=== PATIENT | female | born 1955 | race Hispanic/Latino ===

== ENCOUNTER 2017-02-07 16:28 | Inpatient (IN) | payer OTHER ==
--- NOTE | 2017-02-07 16:57 | CT ---
PROCEDURE: CT HEAD WITHOUT CONTRAST. HISTORY: STROKE ALERT / rt arm numbness COMPARISON: None available. TECHNIQUE: Axial computed tomography images were obtained through the head/brain without intravenous contrast. Radiation dose: Total exam DLP = 815.05 mGy-cm. This CT exam was performed using one or more of the following dose reduction techniques: Automated exposure control, adjustment of the mA and/or kV according to patient size, and/or use of iterative reconstruction technique. FINDINGS: HEMORRHAGE: No intracranial hemorrhage. BRAIN: No mass effect or edema. No atrophy or chronic microvascular ischemic changes. VENTRICLES: Unremarkable. No hydrocephalus. CALVARIUM: Unremarkable. PARANASAL SINUSES: Unremarkable as visualized. No significant inflammatory changes. MASTOID AIR CELLS: Unremarkable as visualized. No inflammatory changes. OTHER FINDINGS: None. IMPRESSION: Normal CT of the Head. No intracranial mass, hemorrhage or evidence of acute infarct. This result was discussed with Dr. Theodore by telephone at 4:55 p.m. on 02/07/2017.
[2017-02-07 17:08] LABS: BASO # 0.1 K/uL (0.0-0.2); EOS # 0.2 K/uL (0.0-0.7); EOS % 2.9 % (0.0-4.0); LYMPH % 38.7 % (20.0-40.0); MEAN CORPUSCULAR HEMOGLOBIN 30.6 pg (27.0-31.0); MONO # 0.6 K/uL (0.0-0.8); MONO % 8.3 % (0.0-10.0); RED CELL DISTRIBUTION WIDTH 13.7 % (11.5-14.5); WHITE BLOOD COUNT 7.8 K/uL (4.8-10.8)
[2017-02-07 17:09] LABS: MEAN CELL VOLUME 92.6 fL (81.0-99.0)
[2017-02-07 17:12] LABS: CHLORIDE 97 mmol/L (98-107); POTASSIUM 3.5 mmol/L (3.6-5.2); SODIUM 137 mmol/L (132-148)
--- NOTE | 2017-02-07 17:12 | C.PDOC ---
History Of Present Illness 61-year-old female, denies significant PMhx, presents to the emergency department with complaints of three-day duration of dizziness and light headedness, that initially was described as "room spinning" vertigo-like sensation. Patient notes that she checked her blood pressure today which was found to be elevated. Today she developed "numbness" in her right arm associated with some anxiety causing her to have some chest discomfort. She was referred to the ED for evaluation. Denies weakness, or lack of coordination. No headache, dizziness, visual changes, speech changes, or any other associated symptoms. No other complaints at this time. Time Seen by Provider: 02/07/17 16:33 Chief Complaint (Nursing): Weakness/Neurological Deficit History Per: Patient History/Exam Limitations: no limitations Past Medical History Reviewed: Historical Data, Nursing Documentation, Vital Signs Vital Signs: Last Vital Signs Temp 98.3 F 02/07/17 16:32 Pulse 94 H 02/07/17 16:55 Resp 20 02/07/17 16:55 BP 182/92 H 02/07/17 16:55 Pulse Ox 97 02/07/17 17:49 - Medical History PMH: No Chronic Diseases Surgical History: No Surg Hx Family History: States: CAD, Hypertension - Social History Hx Tobacco Use: No Hx Alcohol Use: No Hx Substance Use: No - Immunization History Hx Tetanus Toxoid Vaccination: No Hx Influenza Vaccination: No Hx Pneumococcal Vaccination: No Review Of Systems Except As Marked, All Systems Reviewed And Found Negative. Constitutional: Negative for: Fever, Chills Cardiovascular: Positive for: Chest Pain, Light Headedness. Negative for: Palpitations Respiratory: Negative for: Shortness of Breath Gastrointestinal: Negative for: Nausea, Vomiting Musculoskeletal: Negative for: Neck Pain, Back Pain Skin: Negative for: Rash Neurological: Positive for: Numbness, Dizziness. Negative for: Weakness, Incoordination, Change in Speech, Headache Psych: Positive for: Anxiety Physical Exam - Physical Exam Appears: Non-toxic, No Acute Distress Skin: Warm, Dry, No Rash Head: Atraumatic, Normacephalic Eye(s): bilateral: Normal Inspection, PERRL Nose: Normal Oral Mucosa: Moist Lips: Normal Appearing Neck: Normal ROM Cardiovascular: Rhythm Regular Respiratory: Normal Breath Sounds, No Accessory Muscle Use Extremity: Normal ROM Neurological/Psych: Oriented x3, Normal Speech, Other (Subtle right facial droop ) ED Course And Treatment - Laboratory Results Result Diagrams: 02/07/17 16:51 02/07/17 16:51 Lab Interpretation: No Acute Changes ECG: Interpreted By Me ECG Rhythm: Sinus Rhythm, ST/T Changes (nonspecific) ECG Interpretation: No Acute Changes O2 Sat by Pulse Oximetry: 97 Pulse Ox Interpretation: Normal - Radiology CXR: Viewed By Me, Read By Radiologist CXR Interpretation: Yes: No Acute Disease - CT Scan/US Head Other Rad Studies (CT/US): Read By Radiologist, Radiology Report Reviewed CT/US Interpretation: Accession No. : [id number]. Patient Name / ID : SHANDRA DOSS / [id number]. Exam Date : 02/07/2017 16:48:13 ( Approved ). Study Comment : Sex / Age : F / 61Y. Creator : Kole Elaine MD. Dictator : Kole Elaine MD. Managing Director : Truss Puller Helper : Kole Elaine MD. Approver2 : Report Date : 02/07/2017 16:55:51. My Comment : . PROCEDURE : CT HEAD WITHOUT CONTRAST. HISTORY: STROKE ALERT / rt arm numbness. COMPARISON: None available. TECHNIQUE: Axial computed tomography images were obtained through the head/brain without intravenous contrast. Radiation dose: Total exam DLP = 815.05 mGy-cm. This CT exam was performed using one or more of the following dose reduction techniques: Automated exposure control, adjustment of the mA and/or kV according to patient size, and/or use of iterative reconstruction technique. FINDINGS: HEMORRHAGE: No intracranial hemorrhage. BRAIN: No mass effect or edema. No atrophy or chronic microvascular ischemic changes. VENTRICLES: Unremarkable. No hydrocephalus. CALVARIUM: Unremarkable. PARANASAL SINUSES: Unremarkable as visualized. No significant inflammatory changes. MASTOID AIR CELLS: Unremarkable as visualized. No inflammatory changes. OTHER FINDINGS: None. IMPRESSION: Normal CT of the Head. No intracranial mass, hemorrhage or evidence of acute infarct. This result was discussed with Dr. Theodore by telephone at 4:55 p.m. on 02/07/2017. Progress Note: Blood work, EKG and CT head ordered and reviewed. Patient treated with Aspirin and Apresoline. Reevaluation Time: 18:30 Reassessment Condition: Improved - Physician Consult Information Physician Contacted: Melisa Truong Outcome Of Conversation: Patient to be kept on tele for observation, cardiac workup and treatment of new hypertension. NIHSS Stroke Scale - Date/Time Evaluation Performed Date Performed: 02/07/17 Time Performed: 16:45 When Was NIHSS Performed: Baseline - How Severe is the Stoke Level of Consciousness: 0=Alert LOC to Questions: 0=Both comments correct LOC to commands: 0=Obeys both correctly Best Gaze: 0=Normal Visual: 0=No visual loss Facial: 1=Minor asymmetry Motor Arm - Left: 0=No drift Motor Arm - Right: 0=No drift Motor Leg - Left: 0=No drift Motor Leg - Right: 0=No drift Limb Ataxia: 0=Absent Sensory: 0=Normal Best Language: 0=No aphasia Dysarthia: 0=Normal articulation Extinction & Inattention (Neglect): 0=Normal, no object Score: 1 Severity Of Stroke: 1-4= Minor Stroke Disposition - Disposition Disposition: HOSPITALIZED Disposition Time: 18:31 Condition: IMPROVED - POA Present On Arrival: None - Clinical Impression Clinical Impression: Hypertension, Chest pain - Scribe Statement The provider has reviewed the documentation as recorded by the Lyric Guo All medical record entries made by the Scribe were at my direction and personally dictated by me. I have reviewed the chart and agree that the record accurately reflects my personal performance of the history, physical exam, medical decision making, and the department course for this patient. I have also personally directed, reviewed, and agree with the discharge instructions and disposition.
[2017-02-07 17:14] LABS: CHOLESTEROL 241 mg/dL (0-199); GFR AFRICAN-AMERICAN > 60
[2017-02-07 17:15] LABS: ALB/GLOB RATIO 1.3 (1.0-2.1); ALKALINE PHOSPHATASE 84 U/L (38-126); ALT/SGPT 25 U/L (9-52); AST/SGOT 30 U/L (14-36); BILIRUBIN,TOTAL 0.7 mg/dL (0.2-1.3); BLOOD UREA NITROGEN 15 mg/dL (7-17); CALCIUM 9.1 mg/dl (8.6-10.4); CARBON DIOXIDE 28 mmol/L (22-30); GLUCOSE,RANDOM 96 mg/dL (65-105)
--- NOTE | 2017-02-07 18:02 | RAD ---
HISTORY: right arm numbness COMPARISON: Chest x-ray performed 11/27/12 TECHNIQUE: Chest, one view. FINDINGS: LUNGS: No focal consolidation. Please note that chest x-ray has limited sensitivity for the detection of pulmonary masses. PLEURA: No significant pleural effusion identified. No definite pneumothorax . CARDIOVASCULAR: The cardiomediastinal silhouette appears within normal limits of size. OSSEOUS STRUCTURES: No acute osseous abnormality identified. VISUALIZED UPPER ABDOMEN: Unremarkable. OTHER FINDINGS: None. IMPRESSION: No focal consolidation, significant pleural effusion, or definite pneumothorax identified.
--- NOTE | 2017-02-07 18:12 | CP.PCM.HP ---
<Tara Plascencia - Last Filed: 02/07/17 20:54> History of Present Illness - History of Present Illness History of Present Illness: CC: I came in because of my blood pressure HPI: 61 year old female with no PMHx on no prescribed medications presents to ED after being sent in by PMD Dr. Truong for elevated blood pressure. Patient reports that on Monday 02/05 she was feeling dizzy when walking and believed it was her "vertigo" as she had had episodes of dizziness in the past. She described the dizziness as the room spinning. Patient also reported associated nausea that day for which she took Dramamine and fell asleep. 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 Patient reported that at work on the morning of her admission however, when taking her blood pressure she noted it was elevated at 148/90. Patient reported that she had had a check up with Dr. Truong a couple of weeks ago where her blood pressure was within normal limits and her routine lab work had no marked abnormalities. She decided to go into Dr. Truong's office on the day of admission where a rechecked blood pressure on both arms was systolic between 180 - 200 and diastolic between 90 - 100. Patient reports that this morning she was also noticing some pressure on the center of her chest that was constant. She described it as a "heavyness" and denied it being a sharp pain, or pain that radiated down her left arm or up her jaw. She also reported having numbness and tingling down her right arm that began today. Patient also disclosed that over the past three days she was having a frontal 7/10 headache for which she took advil 200mg twice. She denied any associated dizziness. Patient also denied any SOB, cough, swelling of her legs. She also denied any recent travel, recent illnesses, or sick contacts PMD: Dr. Truong PMHx: denies Meds: denies ALL: NKDA PSurg: laminectomy in the and fibroid removal in 2012 PHospitalization: denies FamHx: extensive cardiac history in family: father at 71yo due to CHF; mother at 81yo due to NE; brother is 65yo with a defibrillator, has a hx of stable angina, had an NE when he was 50 years old and has a cardiac stent SocHx: denies ROS: admits to headache, dizziness, nausea, chest pressure, palpitations, numbness and tingling down right arm. Denies fever, chills, diaphoresis, weakness, change in vision, ringing of the ears, SOB, cough, abdominal pain, nausea, vomiting, bowel/bladder complaints, swollen legs ED Course: CT head negative; EKG had no acute changes;first GUEVARA was negative; routine labs; labetalol, hydralazine, ASA were administered Present on Admission - Present on Admission Any Indicators Present on Admission: No Review of Systems - Constitutional Constitutional: As Per HPI, Headache. absent: Chills, Fever - EENT Eyes: As Per HPI. absent: Blurred Vision Ears: As Per HPI. absent: Tinnitus Nose/Mouth/Throat: As Per HPI, Nasal Congestion - Cardiovascular Cardiovascular: As Per HPI, Chest Pain (pressure like pain), Palpitations. absent: Diaphoresis, Dyspnea, Dyspnea on Exertion, Edema, Pain Radiating to Arm/ Neck/Jaw, Leg Edema, Pedal Edema, Radiating Pain - Respiratory Respiratory: As Per HPI. absent: Cough, Dyspnea, Hemoptysis, Wheezing, Chest Congestion - Gastrointestinal Gastrointestinal: As Per HPI, Nausea. absent: Abdominal Pain, Constipation, Diarrhea, Vomiting - Genitourinary Genitourinary: As Per HPI. absent: Dysuria, Hematuria, Pyuria - Musculoskeletal Musculoskeletal: As Per HPI, Numbness (some numbness down R arm), Tingling ( down R arm). absent: Back Pain, Muscle Cramps - Integumentary Integumentary: As Per HPI. absent: Pruritus - Neurological Neurological: As Per HPI, Dizziness, Numbness (R arm), Headaches (frontal 7/10) , Tingling (R arm) - Psychiatric Psychiatric: As Per HPI, Anxiety - Endocrine Endocrine: As Per HPI, Palpitations. absent: Polydipsia, Polyuria - Hematologic/Lymphatic Hematologic: As Per HPI. absent: Easy Bleeding, Easy Bruising, Lymphadenopathy Past Patient History - Infectious Disease Hx of Infectious Diseases: None - Past Social History Smoking Status: Never Smoked - PSYCHIATRIC Hx Substance Use: No - SURGICAL HISTORY Hx Surgeries: No - ANESTHESIA Hx Anesthesia: No Meds Allergies/Adverse Reactions: Allergies Allergy/AdvReac Type Severity Reaction Status Date / Time No Known Allergies Allergy Unverified 02/07/17 16:35 Physical Exam - Constitutional Appears: Non-toxic, No Acute Distress - Head Exam Head Exam: ATRAUMATIC, NORMAL INSPECTION, NORMOCEPHALIC - Eye Exam Eye Exam: EOMI, Normal appearance. absent: Conjunctival injection, Scleral icterus Pupil Exam: NORMAL ACCOMODATION - ENT Exam ENT Exam: Mucous Membranes Moist - Neck Exam Neck exam: Positive for: Normal Inspection. Negative for: Tenderness - Respiratory Exam Respiratory Exam: Clear to Auscultation Bilateral, NORMAL BREATHING PATTERN. absent: Accessory Muscle Use, Rales, Rhonchi, Wheezes, Respiratory Distress - Cardiovascular Exam Cardiovascular Exam: Tachycardia, REGULAR RHYTHM, +S1, +S2 - GI/Abdominal Exam GI & Abdominal Exam: Normal Bowel Sounds, Soft. absent: Firm, Guarding, Rigid, Tenderness - Rectal Exam Rectal Exam: Deferred - Extremities Exam Extremities exam: Positive for: normal inspection, pedal pulses present. Negative for: pedal edema, tenderness - Back Exam Back exam: NORMAL INSPECTION. absent: rash noted - Neurological Exam Neurological exam: Alert, Oriented x3 - Psychiatric Exam Psychiatric exam: Anxious - Skin Skin Exam: Dry, Intact, Normal Color, Warm Results - Vital Signs Recent Vital Signs: Last Vital Signs Temp 98.3 F 02/07/17 16:32 Pulse 94 H 02/07/17 16:55 Resp 20 02/07/17 16:55 BP 182/92 H 02/07/17 16:55 Pulse Ox 97 02/07/17 17:49 - Labs Result Diagrams: 02/07/17 16:51 02/07/17 16:51 Labs: Laboratory Results - last 24 hr 02/07/17 02/07/17 02/07/17 16:51 16:51 16:51 WBC 7.8 RBC 4.43 Hgb 13.5 Hct 41.0 MCV 92.6 D MCH 30.6 MCHC 33.0 RDW 13.7 Plt Count 248 MPV 9.0 Neut % (Auto) 49.1 L Lymph % (Auto) 38.7 [place] % (Auto) 8.3 Eos % (Auto) 2.9 Baso % (Auto) 1.0 Neut # 3.8 Lymph # 3.0 [place] # 0.6 Eos # 0.2 Baso # 0.1 PT 11.5 INR 1.0 APTT 34 Sodium 137 Potassium 3.5 L Chloride 97 L Carbon Dioxide 28 Anion Gap 16 BUN 15 Creatinine 0.8 Est GFR ( Amer) > 60 Est GFR (Non-Af Amer) > 60 Random Glucose 96 Hemoglobin A1c Calcium 9.1 Total Bilirubin 0.7 AST 30 ALT 25 Alkaline Phosphatase 84 Troponin I < 0.0120 Total Protein 8.0 Albumin 4.5 Globulin 3.5 Albumin/Globulin Ratio 1.3 Triglycerides 197 H D Cholesterol 241 H LDL Cholesterol Direct 118 HDL Cholesterol 80 H 02/07/17 16:51 WBC RBC Hgb Hct MCV MCH MCHC RDW Plt Count MPV Neut % (Auto) Lymph % (Auto) [place] % (Auto) Eos % (Auto) Baso % (Auto) Neut # Lymph # [place] # Eos # Baso # PT INR APTT Sodium Potassium Chloride Carbon Dioxide Anion Gap BUN Creatinine Est GFR ( Amer) Est GFR (Non-Af Amer) Random Glucose Hemoglobin A1c 5.1 Calcium Total Bilirubin AST ALT Alkaline Phosphatase Troponin I Total Protein Albumin Globulin Albumin/Globulin Ratio Triglycerides Cholesterol LDL Cholesterol Direct HDL Cholesterol Assessment & Plan - Assessment and Plan (Free Text) Assessment: 61 year old female with no PMHx on no prescribed medications presents to ED after being sent in by PMD Dr. Truong for elevated blood pressure. Plan: HTN Urgency -Patient admitted to TELE -CT head: negative -first GUEVARA negative -first EKG with no acute ST changes -repeat GUEVARA and EKG pending -Labetalol 100mg PO TID [hold if systolic < 120 or diastolic < 60 or HR < 60] -Hydralazine 10mg IVP PRN systolic BP > 180 -ASA 81mg po daily -Crestor 20mg po qhs -Echo pending -AM Labs pending -Cardio consult: Dr. Flores Mixed Hyperlipidemia -Triglycerides 197 -Cholesterol 241 -LDL 118 -HDL 80 -Crestor 20mg po hs PPX -SCDs -Heparin 5000U SC Q8 -Protonix 40mg po daily -Heart healthy diet Plan discussed with Dr. Shira Plascencia PGY1 <Nehemias Silva - Last Filed: 02/08/17 14:49> Results - Vital Signs Recent Vital Signs: Last Vital Signs Temp 97.3 F L 02/08/17 07:30 Pulse 63 02/08/17 07:30 Resp 18 02/08/17 07:30 BP 174/84 H 02/08/17 07:30 Pulse Ox 100 02/08/17 07:30 - Labs Result Diagrams: 02/08/17 07:45 02/08/17 07:45 Labs: Laboratory Results - last 24 hr 02/08/17 02/08/17 02/08/17 00:36 06:24 07:45 WBC 6.1 RBC 4.38 Hgb 13.5 Hct 40.5 MCV 92.5 MCH 30.9 MCHC 33.4 RDW 14.0 Plt Count 227 MPV 8.7 Neut % (Auto) 55.0 Lymph % (Auto) 33.6 [place] % (Auto) 7.4 Eos % (Auto) 2.8 Baso % (Auto) 1.2 Neut # 3.4 Lymph # 2.1 [place] # 0.5 Eos # 0.2 Baso # 0.1 Sodium Potassium Chloride Carbon Dioxide Anion Gap BUN Creatinine Est GFR ( Amer) Est GFR (Non-Af Amer) POC Glucose (mg/dL) 89 Random Glucose Calcium Phosphorus Magnesium Total Bilirubin AST ALT Alkaline Phosphatase Total Creatine Kinase 204 H CK-MB (Mass) 0.86 Troponin I, Quant 0.0120 Total Protein Albumin Globulin Albumin/Globulin Ratio Free T4 TSH 3rd Generation 02/08/17 02/08/17 07:45 07:45 WBC RBC Hgb Hct MCV MCH MCHC RDW Plt Count MPV Neut % (Auto) Lymph % (Auto) [place] % (Auto) Eos % (Auto) Baso % (Auto) Neut # Lymph # [place] # Eos # Baso # Sodium 137 Potassium 3.8 Chloride 100 Carbon Dioxide 26 Anion Gap 15 BUN 13 Creatinine 0.7 Est GFR ( Amer) > 60 Est GFR (Non-Af Amer) > 60 POC Glucose (mg/dL) Random Glucose 100 Calcium 9.2 Phosphorus 4.1 Magnesium 2.2 Total Bilirubin 1.0 AST 28 ALT 16 Alkaline Phosphatase 72 Total Creatine Kinase CK-MB (Mass) Troponin I, Quant Total Protein 7.8 Albumin 4.3 Globulin 3.5 Albumin/Globulin Ratio 1.2 Free T4 1.14 TSH 3rd Generation 2.67 Attending/Attestation - Attestation I have personally seen and examined this patient.: Yes I have fully participated in the care of the patient.: Yes I have reviewed all pertinent clinical information: Yes Notes (Text): 02/08/17 14:48 Patient was seen and examined at bedside Patient is anxious. Blood pressure is elevated. We will start the patient on Trandate. We will put in holding parameters We will also request cardiology consultation I discussed the plan of care with the resident and agree with the above history and physical and assessment/plan by the resident.
[2017-02-07] MEDS ORDERED: Potassium Chloride 20 mEq ER Tab PO ONE (23:15)
[2017-02-08 07:55] LABS: BASO # 0.1 K/uL (0.0-0.2); BASO % 1.2 % (0.0-2.0); EOS # 0.2 K/uL (0.0-0.7); EOS % 2.8 % (0.0-4.0); HEMATOCRIT 40.5 % (34.0-47.0); LYMPH # 2.1 K/uL (1.0-4.3); LYMPH % 33.6 % (20.0-40.0); MEAN CELL VOLUME 92.5 fL (81.0-99.0); MEAN CORPUSCULAR HEMOGLOBIN 30.9 pg (27.0-31.0); MEAN CORPUSCULAR HGB CONC 33.4 g/dL (33.0-37.0); MEAN PLATELET VOLUME 8.7 fL (7.2-11.7); MONO # 0.5 K/uL (0.0-0.8); MONO % 7.4 % (0.0-10.0); WHITE BLOOD COUNT 6.1 K/uL (4.8-10.8)
[2017-02-08 08:51] LABS: ALB/GLOB RATIO 1.2 (1.0-2.1); ALKALINE PHOSPHATASE 72 U/L (38-126); ALT/SGPT 16 U/L (9-52); AST/SGOT 28 U/L (14-36); BLOOD UREA NITROGEN 13 mg/dL (7-17); CALCIUM 9.2 mg/dl (8.6-10.4); CARBON DIOXIDE 26 mmol/L (22-30); CHLORIDE 100 mmol/L (98-107); GFR AFRICAN-AMERICAN > 60; GLUCOSE,RANDOM 100 mg/dL (65-105); MAGNESIUM 2.2 mg/dL (1.6-2.3); PHOSPHOROUS 4.1 mg/dL (2.5-4.5); POTASSIUM 3.8 mmol/L (3.6-5.2); SODIUM 137 mmol/L (132-148); TOTAL PROTEIN 7.8 g/dL (6.3-8.3)
[2017-02-08 08:55] LABS: THYROID STIMULATING HORMONE 2.67 mIU/L (0.46-4.68)
--- NOTE | 2017-02-08 11:53 | CP.PCM.CON ---
<Aury Martino - Last Filed: 02/08/17 12:29> History of Present Illness - History of Present Illness History of Present Illness: PGY-[address] Palomo Cardiology consult: Chest pain r/o ACS, HTN urgency, pre-syncope HPI: This is a 61 year old female with no PMH presenting for cardiac evaluation of HTN urgency, chest pain, and dizziness. On Sunday, she reports feeling dizzy , spinning room sensation and felt nauseated for which she took 2 pills of Dramamine. Over the next two days she continue to feel unwell and yesterday morning started to feel chest discomfort described as sternal pressure. She saw Dr. Truong who saw B was about 200/100 and was subsequently admitted to the hospital. She also reports numbness and tingling down her right arm. Today she reports the chest pressure is better but still present, 4/10 discomfort. Reexamine pt at 12pm this afternoon, pt is resting comfortably in bed with visitors, no more chest pain. She states this is the first time her blood pressure has been elevated. She notes that a few weeks ago she saw Dr. Truong and her BP was not elevated. However, she recently saw her [employer] who noted BP was slightly elevated but cannot remember what the BP was. She admits that there has been slight increase in stress related to her work and home life. ROS: (+) Fatigue, Denies diaphoresis, palpitations, CP, SOB tingling, syncope, nausea, cough, wheeze, back pain, sick contacts, recent travel, trauma, dysuria PMH: denies PSH: Laminectomy L5-S1 , Myomectomy 2012 FH: Father - [place], CHF, Hx of open heart surgery, at 71 y.o.; Mother - of [place] at 81 y.o.; Brother - [place] at 50 y.o., stents, defibrillator, hx stable angina Social Hx: lifetime non-smoker, social EtOH use, drinks 1 cup of tea daily, CPR educator at [employer] Allergies: NKDA Med: No home meds Past Patient History - Infectious Disease Hx of Infectious Diseases: None - Past Medical History & Family History Past Medical History?: Yes - Past Social History Smoking Status: Never Smoked - CARDIAC Hx Cardiac Disorders: No - PULMONARY Hx Respiratory Disorders: Yes Hx Bronchitis: Yes Hx Pneumonia: Yes ("baby") - NEUROLOGICAL Hx Neurological Disorder: Yes Hx Vertigo: Yes - HEENT Hx HEENT Problems: Yes Other/Comment: wear eyeglasses for distance - RENAL Hx Chronic Kidney Disease: No - ENDOCRINE/METABOLIC Hx Endocrine Disorders: No - HEMATOLOGICAL/ONCOLOGICAL Hx Blood Disorders: No - INTEGUMENTARY Hx Dermatological Problems: No - MUSCULOSKELETAL/RHEUMATOLOGICAL Hx Falls: No - GASTROINTESTINAL Hx Gastrointestinal Disorders: Yes Other/Comment: GERD - GENITOURINARY/GYNECOLOGICAL Hx Genitourinary Disorders: No - PSYCHIATRIC Hx Substance Use: No - SURGICAL HISTORY Hx Surgeries: Yes Other/Comment: Hx. of endometriosis (had laparoscopy), laminectomy - ANESTHESIA Hx Anesthesia: No Hx Anesthesia Reactions: No Has any member of the family had a problem w/ anesthesia?: No Meds Allergies/Adverse Reactions: Allergies Allergy/AdvReac Type Severity Reaction Status Date / Time No Known Allergies Allergy Unverified 02/07/17 16:35 - Medications Medications: Current Medications Aspirin (Aspirin Chewable) 81 mg PO DAILY [facility] Heparin Sodium (Porcine) (Heparin) 5,000 units SC Q8 [facility] Last Admin: 02/08/17 06:24 Dose: 5,000 units Hydralazine HCl (Apresoline) 10 mg IVP Q8H PRN PRN Reason: Systolic Blood Pressure Losartan Potassium (Cozaar) 50 mg PO DAILY [facility] Metoprolol Succinate (Toprol Xl) 25 mg PO Q12H [facility] Pantoprazole Sodium (Protonix Ec Tab) 40 mg PO DAILY [facility] Rosuvastatin Calcium (Crestor) 40 mg PO HS [facility] Physical Exam - Head Exam Head Exam: ATRAUMATIC, NORMOCEPHALIC - Eye Exam Eye Exam: EOMI, Normal appearance, PERRL. absent: Scleral icterus Pupil Exam: NORMAL ACCOMODATION - ENT Exam ENT Exam: Mucous Membranes Moist - Neck Exam Neck exam: Negative for: Meningismus Additional comments: No carotid bruits - Respiratory Exam Respiratory Exam: Clear to Auscultation Bilateral, NORMAL BREATHING PATTERN. absent: Rales, Rhonchi, Wheezes - Cardiovascular Exam Cardiovascular Exam: REGULAR RHYTHM, +S1, +S2. absent: Systolic Murmur - GI/Abdominal Exam GI & Abdominal Exam: Normal Bowel Sounds, Soft. absent: Distended, Guarding, Rigid, Tenderness - Extremities Exam Extremities exam: Positive for: normal capillary refill, pedal pulses present. Negative for: calf tenderness, pedal edema - Back Exam Back exam: absent: CVA tenderness (L), CVA tenderness (R) - Neurological Exam Neurological exam: Alert, CN II-XII Intact, Oriented x3 - Psychiatric Exam Psychiatric exam: Normal Affect, Normal Mood - Skin Skin Exam: Dry, Warm Results - Vital Signs Recent Vital Signs: Last Vital Signs Temp 97.3 F L 02/08/17 07:30 Pulse 63 02/08/17 07:30 Resp 18 02/08/17 07:30 BP 174/84 H 02/08/17 07:30 Pulse Ox 100 02/08/17 07:30 - Labs Result Diagrams: 02/08/17 07:45 02/08/17 07:45 Labs: Laboratory Results - last 24 hr 02/08/17 02/08/17 02/08/17 00:36 06:24 07:45 WBC 6.1 RBC 4.38 Hgb 13.5 Hct 40.5 MCV 92.5 MCH 30.9 MCHC 33.4 RDW 14.0 Plt Count 227 MPV 8.7 Neut % (Auto) 55.0 Lymph % (Auto) 33.6 [place] % (Auto) 7.4 Eos % (Auto) 2.8 Baso % (Auto) 1.2 Neut # 3.4 Lymph # 2.1 [place] # 0.5 Eos # 0.2 Baso # 0.1 Sodium Potassium Chloride Carbon Dioxide Anion Gap BUN Creatinine Est GFR ( Amer) Est GFR (Non-Af Amer) POC Glucose (mg/dL) 89 Random Glucose Calcium Phosphorus Magnesium Total Bilirubin AST ALT Alkaline Phosphatase Total Creatine Kinase 204 H CK-MB (Mass) 0.86 Troponin I, Quant 0.0120 Total Protein Albumin Globulin Albumin/Globulin Ratio Free T4 TSH 3rd Generation 02/08/17 02/08/17 07:45 07:45 WBC RBC Hgb Hct MCV MCH MCHC RDW Plt Count MPV Neut % (Auto) Lymph % (Auto) [place] % (Auto) Eos % (Auto) Baso % (Auto) Neut # Lymph # [place] # Eos # Baso # Sodium 137 Potassium 3.8 Chloride 100 Carbon Dioxide 26 Anion Gap 15 BUN 13 Creatinine 0.7 Est GFR ( Amer) > 60 Est GFR (Non-Af Amer) > 60 POC Glucose (mg/dL) Random Glucose 100 Calcium 9.2 Phosphorus 4.1 Magnesium 2.2 Total Bilirubin 1.0 AST 28 ALT 16 Alkaline Phosphatase 72 Total Creatine Kinase CK-MB (Mass) Troponin I, Quant Total Protein 7.8 Albumin 4.3 Globulin 3.5 Albumin/Globulin Ratio 1.2 Free T4 1.14 TSH 3rd Generation 2.67 Assessment & Plan - Assessment and Plan (Free Text) Plan: 61 F, with hyperlipidemia, (+) family hx of premature CAD in first degree relative, comes in for dizziness with "room spinning" associated with headache, hypertension 200s/100s, and pressure like chest pain with numbness and tingling down R arm. Chest Pain r/o ACS - trops negative x 2 - EKG shows PVC. No significant TW or ST changes as compared to initial EKG - Echocardiogram Pending official read - Nuclear stress test Tomorrow - ASA 81 daily HTN urgency - improves - Likely essential HTN. No plan to work up secondary cause for now - Add Losartan 50 daily, Metoprolol 25 q12 - hydralazine PRN if SBP > 180 Pre-syncope vs Vertigo r/o cardiogenic origin - Carotid artery ultrasound Pending official read - No need for tilt table test as this moment - No orthostatic hypotension Hyperlipidemia - Crestor 20 HS - Goal LDL < 100; Total cholesterol < 200; - HDL 80 is protective DVT prophylaxis = heparin sc S/R/D/w Dr. Palomo - Date & Time Date: 02/08/17 Time: 11:52 <Becky Palomo - Last Filed: 02/13/17 16:26> Results - Vital Signs Recent Vital Signs: Last Vital Signs Temp 98.0 F 02/09/17 16:00 Pulse 58 L 02/09/17 16:00 Resp 20 02/09/17 16:00 BP 146/76 02/09/17 16:00 Pulse Ox 97 02/09/17 16:00 - Labs Result Diagrams: 02/08/17 07:45 02/08/17 07:45 Attending/Attestation - Attestation I have personally seen and examined this patient.: Yes I have fully participated in the care of the patient.: Yes I have reviewed all pertinent clinical information: Yes Notes (Text): 02/13/17 16:26 Pt noted to have hypertensive urgency troponins and stress will follw with you
[2017-02-08] MEDS: Pantoprazole 40 mg EC Tab PO SCH (12:51)
[2017-02-08] MEDS: Metoprolol Succinate 25 mg XL Tab PO SCH ×2 (12:51→22:36)
--- NOTE | 2017-02-08 15:37 | MRI ---
PROCEDURE: MRI BRAIN WITHOUT CONTRAST HISTORY: possible Hypertensive crisis COMPARISON: None. TECHNIQUE: Multiplanar, multisequence MR images of the brain were obtained without intravenous contrast enhancement. FINDINGS: HEMORRHAGE: None DWI: No evidence of an acute or early subacute infarction. BRAIN PARENCHYMA: No mass effect or edema. Mild white matter changes likely represent chronic microvascular ischemic disease. VENTRICLES: Unremarkable. No hydrocephalus. CRANIUM: Unremarkable. ORBITS: Grossly unremarkable. PARANASAL SINUSES/MASTOIDS: Clear VASCULAR SYSTEM: Skull base flow voids intact. OTHER FINDINGS: None. IMPRESSION: No evidence of acute pathology in the brain. Mild chronic microvascular white matter ischemic disease.
[2017-02-08 15:58] VITALS: RESP 20
--- NOTE | 2017-02-08 16:00 | CARD ---
APPROVED REPORT EXAM: Two-dimensional and M-mode echocardiogram with Doppler and color Doppler. Other Information Quality : GoodRhythm : INDICATION Dizziness and Vertigo Chest Pain Palpitations HTN EMERGENCY M-Mode DIMENSIONS RVDd1.76 (2.1-3.2cm)Left Atrium (MM)3.12 (2.5-4.0cm) IVSd0.88 (0.7-1.1cm)Aortic Root2.02 (2.2-3.7cm) LVDd4.56 (4.0-5.6cm)Aortic Cusp Exc.1.79 (1.5-2.0cm) PWd0.88 (0.7-1.1cm)FS (%) 29 % LVDs3.25 (2.0-3.8cm)LVEF (%)55 (>50%) Mitral Valve MV E Tdstnzwj29.5cm/sMV A Zbjvbiiw78.1cm/sE/A ratio1.0 TDI E/Lateral E'0.0E/Medial E'0.0 Tricuspid Valve TR Peak Knpbwgss292mc/sTR Peak [id number] LEFT VENTRICLE The left ventricle is normal size. There is normal left ventricular wall thickness. The left ventricular function is normal. The left ventricular ejection fraction is within the normal range. There is normal LV segmental wall motion. Transmitral Doppler flow pattern is Grade I-abnormal relaxation pattern. RIGHT VENTRICLE The right ventricle is normal size. There is normal right ventricular wall thickness. The right ventricular systolic function is normal. ATRIA The left atrium size is normal. The right atrium size is normal. AORTIC VALVE The aortic valve is normal in structure. No aortic regurgitation is present. MITRAL VALVE The mitral valve is normal in structure. Mitral regurgitation is trace. TRICUSPID VALVE There is trace tricuspid regurgitation. There is mild pulmonary hypertension. GREAT VESSELS The aortic root is normal in size. The IVC is normal in size and collapses >50% with inspiration. PERICARDIAL EFFUSION There is no pericardial effusion. <Conclusion> The left ventricle is normal size. There is normal left ventricular wall thickness. The left ventricular function is normal. The left ventricular ejection fraction is within the normal range. There is normal LV segmental wall motion. Transmitral Doppler flow pattern is Grade I-abnormal relaxation pattern. There is mild pulmonary hypertension.
--- NOTE | 2017-02-08 16:44 | CARD ---
APPROVED REPORT EKG Measurement Heart [id number] <Conclusion> Normal sinus rhythm Nonspecific ST and T wave abnormality Abnormal ECG
--- NOTE | 2017-02-08 19:41 | CP.PCM.PN ---
Subjective - Date & Time of Evaluation Date of Evaluation: 02/08/17 Time of Evaluation: 19:40 - Subjective Subjective: Patient blood pressure is controlled well. No shaking noted. Headache is negative, dizziness is negative now. Objective - Vital Signs/Intake and Output Vital Signs (last 24 hours): Temp Pulse Resp BP Pulse Ox 98.4 F 64 20 139/79 96 02/08/17 15:07 02/08/17 15:07 02/08/17 15:07 02/08/17 15:07 02/08/17 15:07 Intake and Output: Chest good air entry bilaterally regular heart sound nontender abdomen - Medications Medications: Current Medications Aspirin (Aspirin Chewable) 81 mg PO DAILY [facility] Last Admin: 02/08/17 15:05 Dose: 81 mg Heparin Sodium (Porcine) (Heparin) 5,000 units SC Q8 [facility] Last Admin: 02/08/17 15:03 Dose: 5,000 units Hydralazine HCl (Apresoline) 10 mg IVP Q8H PRN PRN Reason: Systolic Blood Pressure Losartan Potassium (Cozaar) 50 mg PO DAILY [facility] Last Admin: 02/08/17 12:51 Dose: 50 mg Metoprolol Succinate (Toprol Xl) 25 mg PO Q12H [facility] Last Admin: 02/08/17 12:51 Dose: 25 mg Pantoprazole Sodium (Protonix Ec Tab) 40 mg PO DAILY [facility] Last Admin: 02/08/17 12:51 Dose: 40 mg Rosuvastatin Calcium (Crestor) 20 mg PO HS [facility] - Labs Labs: 02/08/17 07:45 02/08/17 07:45 PT 11.5 SECONDS (9.7-12.2) 02/07/17 16:51 INR 1.0 02/07/17 16:51 APTT 34 SECONDS (21-34) 02/07/17 16:51 Assessment and Plan (1) Chest pain Status: Acute (2) Hypertension Assessment & Plan: 61-year-old female admitted with acute hypertension, complicated with the headache and dizziness. Possibly hypertensive crisis. Associated with the chest pain. Currently stable. We'll get the reports of the MRI, which is so far negative. Awaiting carotid Doppler. Echocardiogram. Stress test in the morning. After that the patient can be discharged home Status: Acute
[2017-02-08] MEDS ORDERED: Potassium Chloride 20 mEq ER Tab PO ONE (21:21)
[2017-02-09 08:39] VITALS: O2SAT 97
[2017-02-09] MEDS ORDERED: Metoprolol Succinate 25 mg XL Tab PO SCH (10:00)
[2017-02-09] MEDS: Pantoprazole 40 mg EC Tab PO SCH (10:38)
--- NOTE | 2017-02-09 11:34 | CP.PCM.PN ---
<Aury Martino - Last Filed: 02/12/17 11:02> Subjective - Date & Time of Evaluation Date of Evaluation: 02/09/17 Time of Evaluation: 11:31 - Subjective Subjective: PGY-[address] Palomo Pt seen and examined. No acute complained overnight per 12 point review. Objective - Vital Signs/Intake and Output Vital Signs (last 24 hours): Temp Pulse Resp BP Pulse Ox 97.9 F 62 20 116/74 97 02/09/17 07:20 02/09/17 07:20 02/09/17 07:20 02/09/17 07:20 02/09/17 07:20 Intake and Output: 02/09/17 02/09/17 06:59 18:59 Intake Total 240 Balance 240 - Medications Medications: Current Medications Aspirin (Aspirin Chewable) 81 mg PO DAILY [facility] Last Admin: 02/09/17 10:35 Dose: 81 mg Heparin Sodium (Porcine) (Heparin) 5,000 units SC Q8 [facility] Last Admin: 02/09/17 05:47 Dose: 5,000 units Hydralazine HCl (Apresoline) 10 mg IVP Q8H PRN PRN Reason: Systolic Blood Pressure Losartan Potassium (Cozaar) 50 mg PO DAILY [facility] Last Admin: 02/09/17 10:35 Dose: 50 mg Metoprolol Succinate (Toprol Xl) 25 mg PO DAILY [facility] Pantoprazole Sodium (Protonix Ec Tab) 40 mg PO DAILY [facility] Last Admin: 02/09/17 10:38 Dose: 40 mg Rosuvastatin Calcium (Crestor) 20 mg PO HS [facility] Last Admin: 02/08/17 22:35 Dose: 20 mg - Labs Labs: 02/08/17 07:45 02/08/17 07:45 PT 11.5 SECONDS (9.7-12.2) 02/07/17 16:51 INR 1.0 02/07/17 16:51 APTT 34 SECONDS (21-34) 02/07/17 16:51 - Constitutional Appears: No Acute Distress - Head Exam Head Exam: ATRAUMATIC, NORMOCEPHALIC - Eye Exam Eye Exam: EOMI, Normal appearance - ENT Exam ENT Exam: Mucous Membranes Moist - Respiratory Exam Respiratory Exam: Clear to Ausculation Bilateral, NORMAL BREATHING PATTERN. absent: Rales, Rhonchi, Wheezes - Cardiovascular Exam Cardiovascular Exam: REGULAR RHYTHM, +S1, +S2. absent: Murmur - GI/Abdominal Exam GI & Abdominal Exam: Soft, Normal Bowel Sounds. absent: Tenderness - Back Exam Back Exam: absent: CVA tenderness (L), CVA tenderness (R) - Neurological Exam Neurological Exam: Alert, Awake, Oriented x3 - Psychiatric Exam Psychiatric exam: Normal Affect, Normal Mood - Skin Skin Exam: Dry, Warm Assessment and Plan - Assessment and Plan (Free Text) Plan: 61 F, with hyperlipidemia, (+) family hx of premature CAD in first degree relative, comes in for dizziness with "room spinning" associated with headache, hypertension 200s/100s, and pressure like chest pain with numbness and tingling down R arm. Atypical Chest Pain, likely from transient increase pulmonary pressure - Has ruled out ACS - trops negative x 2 - EKG shows PVC. No significant TW or ST changes as compared to initial EKG - Echocardiogram - Nuclear stress test normal - ASA 81 daily HTN urgency - improves - Likely essential HTN. No plan to work up secondary cause for now - Add Losartan 50 daily, Metoprolol XL 25 QD - hydralazine PRN if SBP > 180 - Goal BP 150/90 per JNC-8 Pre-syncope vs Vertigo r/o cardiogenic origin - Carotid artery ultrasound Pending official read; follow up outpatient - No need for tilt table test as this moment - No orthostatic hypotension Hyperlipidemia - Crestor 20 HS - Goal LDL < 100; Total cholesterol < 200; - HDL 80 is protective DVT prophylaxis = heparin sc Disposition - follow up with Dr. Palomo in 1-2 weeks after discharge S/R/D/w Dr. Palomo <Becky Palomo - Last Filed: 02/13/17 16:27> Objective - Vital Signs/Intake and Output Vital Signs (last 24 hours): Temp Pulse Resp BP Pulse Ox 98.0 F 58 L 20 146/76 97 02/09/17 16:00 02/09/17 16:00 02/09/17 16:00 02/09/17 16:00 02/09/17 16:00 - Labs Labs: 02/08/17 07:45 02/08/17 07:45 PT 11.5 SECONDS (9.7-12.2) 02/07/17 16:51 INR 1.0 02/07/17 16:51 APTT 34 SECONDS (21-34) 02/07/17 16:51 Attending/Attestation - Attestation I have personally seen and examined this patient.: Yes I have fully participated in the care of the patient.: Yes I have reviewed all pertinent clinical information, including history, physical exam and plan: Yes Notes (Text): 02/13/17 16:27 pt stable vital signs d/c lasix follow up with Dr Truong
--- NOTE | 2017-02-09 15:12 | CP.PCM.DIS ---
Provider - Provider Date of Admission: 02/07/17 22:44 Attending physician: Melisa Truong MD Time Spent in preparation of Discharge (in minutes): 45 Diagnosis - Discharge Diagnosis (1) Chest pain Status: Acute (2) Hypertension Status: Acute Hospital Course - Lab Results Lab Results: Most Recent Lab Values WBC 6.1 K/uL (4.8-10.8) 02/08/17 07:45 RBC 4.38 Mil/uL (3.80-5.20) 02/08/17 07:45 Hgb 13.5 g/dL (11.0-16.0) 02/08/17 07:45 Hct 40.5 % (34.0-47.0) 02/08/17 07:45 MCV 92.5 fL (81.0-99.0) 02/08/17 07:45 MCH 30.9 pg (27.0-31.0) 02/08/17 07:45 MCHC 33.4 g/dL (33.0-37.0) 02/08/17 07:45 RDW 14.0 % (11.5-14.5) 02/08/17 07:45 Plt Count 227 K/uL (130-400) 02/08/17 07:45 MPV 8.7 fL (7.2-11.7) 02/08/17 07:45 Neut % (Auto) 55.0 % (50.0-75.0) 02/08/17 07:45 Lymph % (Auto) 33.6 % (20.0-40.0) 02/08/17 07:45 [place] % (Auto) 7.4 % (0.0-10.0) 02/08/17 07:45 Eos % (Auto) 2.8 % (0.0-4.0) 02/08/17 07:45 Baso % (Auto) 1.2 % (0.0-2.0) 02/08/17 07:45 Neut # 3.4 K/uL (1.8-7.0) 02/08/17 07:45 Lymph # 2.1 K/uL (1.0-4.3) 02/08/17 07:45 [place] # 0.5 K/uL (0.0-0.8) 02/08/17 07:45 Eos # 0.2 K/uL (0.0-0.7) 02/08/17 07:45 Baso # 0.1 K/uL (0.0-0.2) 02/08/17 07:45 PT 11.5 SECONDS (9.7-12.2) 02/07/17 16:51 INR 1.0 02/07/17 16:51 APTT 34 SECONDS (21-34) 02/07/17 16:51 Sodium 137 mmol/L (132-148) 02/08/17 07:45 Potassium 3.8 mmol/L (3.6-5.2) 02/08/17 07:45 Chloride 100 mmol/L (98-107) 02/08/17 07:45 Carbon Dioxide 26 mmol/L (22-30) 02/08/17 07:45 Anion Gap 15 (10-20) 02/08/17 07:45 BUN 13 mg/dL (7-17) 02/08/17 07:45 Creatinine 0.7 MG/DL (0.7-1.2) 02/08/17 07:45 Est GFR ( Amer) > 60 02/08/17 07:45 Est GFR (Non-Af Amer) > 60 02/08/17 07:45 POC Glucose (mg/dL) 94 mg/dL (65-110) 02/09/17 06:36 Random Glucose 100 mg/dL (65-105) 02/08/17 07:45 Hemoglobin A1c 5.1 % (4.2-6.5) 02/07/17 16:51 Calcium 9.2 mg/dl (8.6-10.4) 02/08/17 07:45 Phosphorus 4.1 mg/dL (2.5-4.5) 02/08/17 07:45 Magnesium 2.2 mg/dL (1.6-2.3) 02/08/17 07:45 Total Bilirubin 1.0 mg/dL (0.2-1.3) 02/08/17 07:45 AST 28 U/L (14-36) 02/08/17 07:45 ALT 16 U/L (9-52) 02/08/17 07:45 Alkaline Phosphatase 72 U/L (38-126) 02/08/17 07:45 Total Creatine Kinase 204 U/L (30-135) H 02/08/17 00:36 CK-MB (Mass) 0.86 ng/mL (0.0-3.38) 02/08/17 00:36 Troponin I < 0.0120 ng/mL (0.00-0.120) 02/07/17 16:51 Troponin I, Quant 0.0120 ng/mL (0.00-0.120) 02/08/17 00:36 Total Protein 7.8 g/dL (6.3-8.3) 02/08/17 07:45 Albumin 4.3 g/dL (3.5-5.0) 02/08/17 07:45 Globulin 3.5 gm/dL (2.2-3.9) 02/08/17 07:45 Albumin/Globulin Ratio 1.2 (1.0-2.1) 02/08/17 07:45 Triglycerides 197 mg/dL (0-149) H D 02/07/17 16:51 Cholesterol 241 mg/dL (0-199) H 02/07/17 16:51 LDL Cholesterol Direct 118 mg/dL (0-129) 02/07/17 16:51 HDL Cholesterol 80 mg/dL (30-70) H 02/07/17 16:51 Free T4 1.14 ng/dL (0.78-2.19) 02/08/17 07:45 TSH 3rd Generation 2.67 mIU/L (0.46-4.68) 02/08/17 07:45 Blood Type O POSITIVE 02/07/17 17:05 Antibody Screen Negative 02/07/17 17:05 - Hospital Course Hospital Course: Patient is a 61-year-old female with no past medical history came to the office with a severe hypertension and headache. Patient was immediately sent to the emergency room. Code alert was called. CAT scan of the head was showing no evidence of any acute stroke. Severe hypertension noted. Patient received labetalol, enalapril. Blood pressure slowly improved. Patient was observed in the hospital for 24-48 hours. Patient blood pressure slowly improved with the antihypertensives. Patient underwent the stress test by integration assistant. Stress test was negative. Carotid artery ultrasound showing no evidence of any occlusion. Patient likely stable. Patient will be discharged home, patient will continue the current medications including antihypertensives and aspirin. Clinical stable, take 1 week rest will follow the patient in the office Discharge Exam - Head Exam Head Exam: ATRAUMATIC, NORMOCEPHALIC Discharge Plan - Discharge Medications Prescriptions: Losartan [Cozaar] 25 mg PO BID #60 tab Aspirin [Lo-Dose Aspirin EC] 81 mg PO DAILY #30 tablet.dr - Follow Up Plan Condition: IMPROVED Disposition: HOME/ ROUTINE Instructions: Aspirin (By mouth), Losartan (By mouth), Heart Healthy Diet (DC) , Hypertension (DC) Additional Instructions: Follow up with Dr Truong in the office in one week. Referrals: Melisa Truong MD [Staff Provider] -
[2017-02-09 16:36] VITALS: BP 146/76; PULSE 58; TEMP 98
--- NOTE | 2017-02-10 07:59 | CARD ---
APPROVED REPORT Protocol: [place] Test Type: NUCLEAR STRESS Test Indications: HTN Target HR: 158 bpm Resting ECG: normal Resting Heart Rate: 77 bpm Resting Blood Pressure: 122/80mmHg submaximum (85%): 134 bpm TEST SUMMARY PRETESTWARM-UP02:[id number]/80.0. EXERCISESTAGE 103:[id number]/80.0. EXERCISESTAGE 203:[id number]/80.0. EXERCISESTAGE 300:[id number]/80.0. BENMMLJP09:[id number]/80.0. POST EXERCISE Reason for Termination: PROTOCAL ENDED Target HR: No Max HR: 105 bpm 68% of Maximum Predicted HR: 158 bpm Exercise duration: 06:02 min:sec, 3 Stage Exercise capacity: 7.0METs Max Blood Pressure: 140/80mmHg Blood Pressure response to exercise: normal resting BP - appropriate response Heart Rate response to exercise: appropriate Chest Pain: No, none Angina index: 0 Arrhythmia: No, none ST Change: No, none Deviation: 0 mm INTERPRETATION Stress EKG Conclusion: NL EST NUCLEAR PENDING EXAM: Myocardial Perfusion STRESS/REST Imaging Protocol The imaging protocol used to acquire images was Stress Tc-99m/rest Tc-99m 1 day Rest Spect myocardial perfusion imaging was performed in supine position 45 minutes following the injection of 32.3 mCi of Tc-99 Myoview. Gated Stress Spect was performed 45 minutes after intravenous 12.9 mCi Tc-99 Myoview injection. The images were gated to evaluate regional wall motion and calculate ventricular ejection fraction.Images were reconstructed using backfilter projection method in short horizontal and verticle long axis. Spect slices were generated. RESTING DATA EDV53.39ryXZ6.20L/min ESV13.00mlMyocardial Mass93.00g Av. Heart Rate54.00bpm EF75.00% STRESS DATA EDV49.17egIB4.30L/min ESV10.00mlMyocardial Mass93.00g EF80.00% Regional WT score at stress:2.00 Regional WM score at stress:0.00 Summed WT score at stress:24.00 Av. Heart Rate59.00bpmSummed WM score at stress:0.00 LV Perf. Quant 17 Seg. SSS1.00 17 Seg. SRS2.00 17 Seg. SDS1.00 Stress Defect Extent (% LAD)0.00Rest Defect Extent (% LAD)0.00Rev. Defect Extent (% LAD)0.00 Stress Defect Extent (% LCX)0.00Rest Defect Extent (% LCX)0.00Rev. Defect Extent (% LCX)0.00 Stress Defect Extent (% RCA)0.00Rest Defect Extent (% RCA)0.00Rev. Defect Extent (% RCA)0.00 Stress Defect Extent (% TONI)0.00Rest Defect Extent (% TONI)0.00Rev. Defect Extent (% TONI)0.00 Other Information Quality:Good Overall Exercise Capacity: Good IMPRESSION Normal Myocardial Perfusion exercise stress study Global LV Function: Normal Stress Test Summary: Normal LV Perfusion Summary: Normal Metabolism/Perfusion There are no defects. Conclusion 1. The stress and resting images show normal perfusion.
--- NOTE | 2017-02-12 11:46 | CARD ---
APPROVED REPORT EKG Measurement Heart [id number] <Conclusion> Sinus rhythm with occasional premature ventricular complexes Nonspecific ST abnormality Abnormal ECG
--- NOTE | 2017-02-19 10:55 | VASCLAB ---
PROCEDURE: HISTORY: COMPARISON: None available. TECHNIQUE: Grayscale and duplex Doppler evaluation of the cervical carotid and vertebral arteries were performed. The common carotid, carotid bifurcations and cervical Internal Carotid Artery (ICA) and proximal External Carotid Artery (ECA) were evaluated. The vertebral arteries were evaluated for gross patency and flow direction. Report prepared by Velasquez Stevens, BS, RVT FINDINGS: RIGHT CAROTID ARTERIES: 1. Common Carotid Artery: No significant focal plaque formation of the right common carotid artery. Maximum Peak Systolic velocity: 68 cm/sec: End-diastolic velocity 21 cm/sec. 2. Carotid Bifurcation: plaque formation. Maximum Peak Systolic velocity: 68 cm/sec: End-diastolic velocity 27 cm/sec. 3. Internal Carotid Artery: Plaque description: 3.1. Proximal Segment: Peak systolic velocity 67 cm/sec: End-diastolic velocity 27 cm/sec - % stenosis 0-15% 3.2. Middle Segment: Peak systolic velocity 82 cm/sec: End-diastolic velocity 23 cm/sec - % stenosis 0-15% 3.3. Distal Segment: Peak systolic velocity 122 cm/sec: End-diastolic velocity 36 cm/sec - % stenosis 0-15% 4. External Carotid Artery: No significant focal plaque formation. Peak systolic velocity 93 cm/sec 5. ICA/CCA Ratio: 1.8 LEFT CAROTID ARTERIES: 1. Common Carotid Artery: No significant focal plaque formation of the left common carotid artery. Maximum Peak Systolic velocity: 75 cm/sec: End-diastolic velocity 21 cm/sec. 2. Carotid Bifurcation: plaque formation. Maximum Peak Systolic velocity: 81 cm/sec: End-diastolic velocity 21 cm/sec. 3. Internal Carotid Artery: Plaque description: 3.1. Proximal Segment: Peak systolic velocity 81 cm/sec: End-diastolic velocity 26 cm/sec - % stenosis 0-15% 3.2. Middle Segment: Peak systolic velocity 90 cm/sec: End-diastolic velocity 36 cm/sec - % stenosis 0-15% 3.3. Distal Segment: Peak systolic velocity 65 cm/sec: End-diastolic velocity 21 cm/sec - % stenosis 0-15% 4. External Carotid Artery: No significant focal plaque formation. Peak systolic velocity 101 cm/sec 5. ICA/CCA Ratio: 1.2 VERTEBRAL ARTERIES: 1. Right Vertebral Artery: The right vertebral artery flow direction is antegrade. 2. Left Vertebral Artery: The left vertebral artery flow direction is antegrade. OTHER FINDINGS: 1. Right Brachial Blood pressure: 160 mmHg. 2. Left Brachial Blood pressure: 164 mmHg. IMPRESSION: RIGHT: Duplex scan does not suggest hemodynamically significant stenosis of the right extracranial carotid arteries. LEFT: Duplex scan does not suggest hemodynamically significant stenosis of the left extracranial carotid arteries.
== END 2017-02-09 17:00 | disposition home or self-care (01) | DRG 305 ==
LOC: C.ER 16:28 → C.6T 17:28 → OBSVTOIN 22:44
PROVIDERS: ADMIT Internal Medicine; ATTEND Internal Medicine
DX: I10 Essential (primary) hypertension (principal); F41.9 Anxiety disorder, unspecified; Z87.01 Personal history of pneumonia (recurrent); Z68.22 Body mass index [BMI] 22.0-22.9, adult; R07.9 Chest pain, unspecified